=== PATIENT | male | born 2000 | race Hispanic/Latino ===

== ENCOUNTER 2024-03-16 11:43 | Emergency (ER) | payer SELFPAY ==
[~2024-03-16] VITALS: Ht 175.3 cm; Wt 77.6 kg
[2024-03-16] MEDS: KETOROLAC TROMETHAMINE 30 MG/ML VIAL IV STA (12:25)
[2024-03-16] MEDS: GUAIFENESIN 200 MG/10 ML UDC PO ONE (12:33)
[2024-03-16] MEDS: SODIUM CHLORIDE 0.9% 1000ML 1,000 ML IV ONE (12:36)
[2024-03-16 13:13] VITALS: PULSE 90; RESP 16; TEMP 101.1; O2SAT 100
== END 2024-03-16 13:13 | disposition home or self-care (01) ==
LOC: FSED 11:48
DX: R50.9 Fever, unspecified (principal); B34.9 Viral infection, unspecified; R05.9 Cough, unspecified; R42 Dizziness and giddiness; R51.9 Headache, unspecified; R73.03 Prediabetes; Z11.52 Encounter for screening for COVID-19
CPT/HCPCS: 0223U; 71046; 80053; 81003; 83518; 85025; 87400; 96374; 99284; J1885; J7030

== ENCOUNTER 2024-10-10 15:36 | Emergency (ER) | payer SELFPAY ==
[~2024-10-10] VITALS: Ht 172.7 cm; Wt 79.4 kg
[2024-10-10] MEDS ORDERED: COLACE100 M1 PO (17:07)
[2024-10-10 17:23] VITALS: PULSE 69; RESP 16; TEMP 99.4; O2SAT 98
== END 2024-10-10 17:23 | disposition home or self-care (01) ==
LOC: FSED 15:50
DX: K64.5 Perianal venous thrombosis (principal); R73.03 Prediabetes; F17.210 Nicotine dependence, cigarettes, uncomplicated
CPT/HCPCS: 99283